=== PATIENT | female | born 1985 | race Caucasian/White ===

== ENCOUNTER 2016-07-24 08:23 | Day surgery (SDC) | payer OTHER ==
[~2016-07-24] VITALS: Ht 158.8 cm; Wt 91.6 kg
[2016-07-24] VITALS (8 sets, daily range): BP systolic 102–111; BP diastolic 57–80; PULSE 50–70; RESP 12–16; O2SAT 96–100
--- NOTE | 2016-07-24 06:49 | PCM.HPANE ---
Patient Data Surgeon Admitting Provider: Attending Provider:Julito Monteiro MD Primary Care Physician:Filiberto Other Provider:Israel Gould Anesthesia Reason for Visit Family Planning Ht/WT & BMI Height (Feet): 5 Height (Inches): 2.5 Body Mass Index 0.00 Allergies Coded Allergies: No Known Allergies (Verified Allergy, Severe, 01/09/07) Past Anesthesia History Anesthesia History: Denies:: Abnormal Airway, Anesthesia Reactions, Difficult Intubation, Fam Anesthesia Reaction Diabetes History Hx Diabetes?: No MRSA MRSA: No Medications Hypertension Medication: No Home Meds Incl Beta Kitty: No Reported Medications Sertraline HCl (Sertraline)50 Mg [id number] Mg PO DAILY 30 Days Ref 0 07/22/16 Discontinued Reported Medications Vits #90/Iron Fum/FA ( Formula Tablet)1 Each Tablet1 Each PO DAILY 07/22/16 Discontinued Scripts [Ascorbic Acid] (Vitamin C)500 MG TABLET No Conflict Citat119 Mg PO BIDWM #90 TABLET Prov:Laron Thompson DO 06/03/16 Docusate Sodium (Colace)100 Mg [id number] Mg PO BID #60 CAPSULE Prov:Laron Thompson DO 06/03/16 Ibuprofen 600 Mg [id number] Mg PO Q6H PRN For Mild Pain #60 TABLET Prov:Laron Thompson DO 06/03/16 Ferrous Sulfate (Feosol)325 Mg [id number] Mg PO BIDWM #90 TABLET Prov:Laron Thompson DO 06/03/16 History History of ENT Problems?: No HEENT History: Denies:: Abnormal Airway Cataracts Difficult Intubation Dysphagia Glaucoma Hearing Problem Sinus Problem TMJ Hx of Heart Problems?: No Cardiovascular History: Denies:: AICD Edema Heart Murmur Hypertension Irregular Heartbeat Pacemaker Hx of Respiratory Problem?: No Respiratory History: Denies:: Asthma COPD Emphysema Oxygen Administration Pneumonia Tuberculosis Use of C-PAP Machine Use of Inhalers / NEBS Hx Neurologic Problems?: No Neurological History: Denies:: CVA Headaches Multiple Sclerosis Parkinson's Disease Seizures TIA Hx of GI Problems?: No Gastrointestinal History: Denies:: Gall Bladder Disease Gastroesphageal Reflux Gastrointestinal Bleeding Heartburn Hepatitis Hiatal Hernia Liver Disease Hx of Problems?: No Genitourinary History: Denies:: Kidney Stones Urinary Tract Infection HX of Peritoneal Dialysis: No Female Hx: Denies:: Currently (current admission problem) Problems with Breasts? Skin History: Denies:: History Skin Disorders? Pressure Ulcers Hx Musculoskeletal Problems?: No Musculoskeletal History: Denies:: Back Injury Degenerative Joint Fibromyalgia Joint Replacement Musculoskeletal Trauma Myasthenia Gravis Osteoarthritis Hx of Psycho/Social Problems?: Yes Psycho Social History: Positive for:: Hx Depression (post ) Hx Surgeries?: Yes (left salping-oopherectomy) Hx Any Other Health Problems?: Yes Other History: Denies:: Cancer Thyroid Disease History Blood Transfusions: Positive for:: Accept Blood Products? Denies:: Blood Transfusions Hx Diabetes: No Hx Alcohol Use: NoHx Substance Use: No Smoking Status: Never Smoker Have You Smoked inLast 12 mo: No Stop/Bang P-Blood Pressure: treated: No B- Body Mass Index > 35 kg/m2: Yes A- Age over 50: No N- Neck Large Circumference: No G- Gender Male: No Risk Assessment Category Category 1A: Patient has history of documented sleep apnea, and HAS NOT received any narcotic, sedative or anesthesia administration during this stay. Category 1B: Patient has history of documented sleep apnea, and HAS received any narcotic , sedative or anesthesia administration during this stay Category 2: Patient has SUSPECTED Obstructive Sleep Apnea, and HAS received any narcotic , sedative or anesthesia administration during this stay. Category 3: Patient has SUSPECTED Obstructive Sleep Apnea and HAS NOT received narcotic, sedative or anesthesia administration during this stay. Category 4: Outpatient in Procedural Areas with known sleep apnea or who screen positive for High Risk via the STOP/BANG questionnaire. Exam Exam General Appearance: Alert, Oriented X3, Cooperative HEENT/AIRWAY: MP 2, Neck Movement (from), Mouth Opening (wnl) Lungs: Clear to Auscultation Heart: Exam Unremarkable Plan Impression Patient chart reviewed, patient interviewed and anesthestic plan with risks, benefits, and alternatives discussed, and informed consent obtained. ASA Physical Status: ASA2 Mod Systemic Disease Anesthetic Plan: GA Bene/Risks/Altern/Consents: Yes HP Complete Prior to Induction: Yes Ephraim Lowe MD Jul 24, 2016 06:49
[~2016-07-24 08:23] MED LIST: PREN-100 PO; SERT50TA9 PO
[2016-07-24] MEDS ORDERED: fentaNYL-PF 50 mCg/mL 2 mL Inj ONE (08:24)
[2016-07-24] MEDS: Lactated Ringer's 1,000 ML IV SCH ×2 (08:40→13:44)
[2016-07-24] MEDS ORDERED: Acetaminophen IV 1,000 MG in IV Premix 1 EACH IV ONE (09:25)
[2016-07-24] MEDS ORDERED: Lactated Ringer's 1,000 ML IV SCH (13:21)
[2016-07-24] MEDS ORDERED: Lactated Ringer's 500 ML IV PRN (13:21)
[2016-07-24] MEDS ORDERED: hydrALAZINE 20 mg/mL Inj IVPUSH PRN (13:25)
[2016-07-24] MEDS ORDERED: Ondansetron 2 mg/mL 2 mL Inj IVPUSH PRN ×2 (13:25→14:05)
[2016-07-24] MEDS ORDERED: Dexamethasone 4 mg/mL Inj IVPUSH PRN (13:25)
[2016-07-24] MEDS ORDERED: HYDROmorphone 1 mg/mL Inj IVPUSH PRN (13:25)
[2016-07-24] MEDS ORDERED: EPHEDrine Sulfate 50 mg/mL Inj IM PRN (13:25)
[2016-07-24] MEDS ORDERED: EPHEDrine Sulfate 50 mg/mL Inj IVPUSH PRN (13:25)
[2016-07-24] MEDS ORDERED: Labetalol 5 mg/mL 4 mL Inj IV PRN (13:25)
[2016-07-24] MEDS ORDERED: Atropine 0.4 mg/mL Inj IVPUSH PRN (13:25)
[2016-07-24] MEDS ORDERED: hydrOXYzine Inj 25 MG/1 mL SDV IM PRN (13:25)
[2016-07-24] MEDS ORDERED: Phenylephrine 10,000 mCg/mL Inj IVPUSH PRN (13:25)
[2016-07-24] MEDS ORDERED: Bupivacaine 0.5%/EPI 50 mL Inj INFILTRATE ONE (13:43)
[2016-07-24] MEDS ORDERED: HYDROcodone-APAP 5-325 mg Tablet PO PRN (14:05)
[2016-07-24] MEDS ORDERED: PNV91TAB6 PO (14:06)
--- NOTE | 2016-07-24 14:08 | PCM.DIGYN ---
Surgical Discharge Instruction Dates of Hospitalization Date of Hospital Admission 07/24/2016 Providers Admitting Physician: Primary Care Physician: Filiberto Attending Physician: Julito Monteiro MD Diagnosis at Time of Discharge Problems: (1) Encounter for sterilization Status: Acute ICD Code: Z30.2 Diet Discharge Diet: No restrictions Activity Discharge Activity-General: Be up and about Dressing and Incisional Care Hygiene: May shower, DO NOT soak incision under water Additional Instructions Discharge Instructions You had an uncomplicated laparoscopic tubal ligation. You should anticipate some mild to moderate abdominal pain and cramping and light vaginal bleeding. Follow Up Plan Follow-up Provider (F9): Julito Monteiro MD Follow-up appointment: Weeks (2) Call your provider for: Fever (of 100.4 or higher), Shortness of breath, Vomitting, Drainage at incision, Heavy vaginal bleeding, Increasing pain Julito Monteiro MD Jul 24, 2016 14:08
--- NOTE | 2016-07-24 14:16 | PCM.ANEP1 ---
Post Anesthesia Phase 1 PACU Phase 1 Assessment Vital Signs Vital Signs Date Time Temp Pulse Resp B/P Pulse Ox O2 Delivery O2 Flow Rate FiO2 07/24/16 09:03 36.2 70 12 106/80 98 Room Air 07/24/16 08:53 36.2 70 12 106/80 98 Room Air Anesthetic Administered: GA Level of Alertness: Awake, talking LUKE's with Equal Strength: Yes Pain: No Nausea or Vomiting: No Oxygen Delivery: Room Air Lungs: Clear to Auscultation Ephraim Lowe MD Jul 24, 2016 14:16
--- NOTE | 2016-07-24 14:19 | PCM.SURGOP ---
Surgical Operative Report Date of Service: Jul 24, 2016 Pre Operative Diagnosis 1. Multiparity 2. Desired permanent sterilization 3. Obesity Post Operative Diagnosis 1. Multiparity 2. Desired permanent sterilization 3. Obesity Procedure: Laparoscopic right tubal ligation Surgeon and Layout Former: Surgeon: Julito Monteiro MD Assistants: Ansley Mckeon MD, Dr.'s assistance was helpful in order to complete the case safely. Indication for Procedure Anali is a very nice 31 y/o s/p on 06/02/2016. She desires tubal ligation. She signed [facility] consents in April. She is certain she is done with childbearing. She realizes that there are reversible and effective methods and is certain she desires permanent sterilization. She does report h/o of some degree of heavy periods and dysmenorrhea and realizes that she may choose to go back on a contraceptive method in the future to treat these. She reports h/o a left salpingo-oophorectomy, so states that she believes that really we will just be performing a tubal ligation on the right. Findings: Normal uterus, right tube and ovary. Left tube and ovary absent. Normal intraabdominal exam. Unable to easily visualize appendix. Procedure Details The patient was taken to the operating room where general anesthesia was established. She was laid dorsal lithotomy with yellow fin stirrups. She was prepped and draped in the usual sterile fashion. The bladder was drained. A time out was performed to confirm the correct patient and procedure. Attention was turned vaginally where a graves speculum placed and cervix visualized. A tenaculum was applied to the anterior lip of the cervix and acorn manipulator was placed without difficulty. Speculum removed. Attention turned to the abdomen. The umbilical area was injected 10mL 0.5% Marcaine with epinephrine. A Veress needle was inserted intraabdominal placement was confirmed with a drop in CO2 pressure to and drop of a water filled syringe. The abdomen was then insufflated to 15. A 11mm periumbilical skin incision was then made and an 11 mm trocar was placed. Intraabdominal placement was confirmed with the laparoscope. Inspection revealed no apparent injuries or complications. The uterus was elevated. The right tube was identified and followed to the fimbria. Next, the Filshie clip device was introduced into the abdomen was applied 3 cm distal to cornua so the entire tube was transected. After this was done, a survey revealed that the tube was completely clamped. A survey of the abdomen then revealed no bleeding or abnormalities. The instruments were removed and CO2 evacuated. The umbilical incision fascia was closed with 0-vicryl and skin closed with 4-0 vicryl and Dermabond. Instruments removed from the vagina. The patient was taken to the recovery room in stable condition. Sponge, needle and instrument counts were correct x 2 at the close of the procedure. IVF: 500mL UOP: 10mL EBL: 0mL VTE Prophylaxis: SCDs Antibiotics: None indicated Complications There were no periprocedural complications identified. Surgical Specimen Removed: No Specimen sent to Pathology: No Anesthetic Plan: GA Grafts, Implants: Grafts-See Implant Record (Filshie clip) Output, Estimated Blood Loss: 0 (mL) Blood Administration during coy: No Catheters: Straight Post Operative Plan Discharge home later today when stable. Julito Monteiro MD Jul 24, 2016 14:19
[2016-07-24] MEDS: fentaNYL-PF 50 mCg/mL 2 mL Inj IVPUSH PRN ×2 (14:20→14:35)
--- NOTE | 2016-07-25 11:44 | PCM.ANEP2 ---
Post Anesthesia Evaluation ASA/CMS Post Anesthesia VS in Patient's Normal Range?: Yes Resp Stable; Airway Patent?: Yes CV Function & Hydration Stable: Yes Mental Status Recovered?: Yes Pain control Satisfactory?: Yes N/V Control Satisfactory?: Yes Ephraim Lowe MD Jul 25, 2016 11:44
== END 2016-07-24 23:59 | disposition home or self-care (01) ==
LOC: SAS 08:23
PROVIDERS: ATTEND Obstetrics & Gynecology
DX: Z30.2 Encounter for sterilization (principal); F53 Mental and behavioral disorders associated with the puerperium, not elsewhere classified; E66.9 Obesity, unspecified; Z68.36 Body mass index [BMI] 36.0-36.9, adult; Z64.1 Problems related to multiparity
CPT/HCPCS: 58661; J0131; J2175; J2250; J3010; J7120